=== PATIENT | male | born 1940 | race Caucasian/White ===

== ENCOUNTER → 2017-04-08 | Outpatient (CLI) | payer MEDICARE ==
--- NOTE | 2017-04-08 08:56 | MR ---
MRI BRAIN AND CERVICAL SPINE WITHOUT INTRAVENOUS CONTRAST: CLINICAL HISTORY: Myelopathy and stroke symptoms. TECHNIQUE: Multiplanar, multisequence imaging of the cervical spine is performed without intravenous contrast. COMPARISON: None. FINDINGS: Brain: Diffusion weighted images demonstrate no evidence of a recent infarct or other diffusion abnor mality. There is no extra-axial fluid collection. Old lacunar injury is seen of the right rosa that does not restricted diffusion and is T2/FLAIR hyperintense. Other scattered areas of T2/FLAIR hyperin tensity are seen within the subcortical and periventricular white matter, mild in degree and proporti omid to the patient's age. Major intracranial flow voids are maintained. The ventricular system and cisternal spaces are symmetrically prominent and compatible with age-related atrophy. Midline structures demonstrate normal morphology. The craniocervical junction appears within normal limits. Post contrast images demonstrate no abnormal enhancement. The dural venous sinuses appear pa tent. The globes are intact. Within the subcutaneous soft tissues of the left posterior occipital reg ion there is a 1.2 cm T2/flair/T1 hypointense subcutaneous oval well-circumscribed lesion without deena rounding inflammatory change that could represent a complex sebaceous cyst. Moderate ethmoid and mild frontal paranasal sinus mucosal thickening is appreciated. Remaining paranasal sinuses are well aera ernesto. Mild right nasal turbinate mucosal hypertrophy is present. Cervical spine: Sagittal images of the cervical spine show the craniocervical junction to appear within normal limits . The cervical and upper thoracic spinal cord is normal in course, caliber, and signal. Vertebral a lignment is anatomic. Multilevel degenerative disc disease is seen most pronounced at C6-C7 resulting in intervertebral disc space loss throughout the cervical spine. The bone marrow signal intensity i s within normal limits. T2 hyperintense 8mm right thyroid nodule is present as well as subcentimeter left thyroid gland nodularity. C2-C3: No significant disc disease, spinal canal stenosis or neuroforaminal narrowing. C3-C4: Mild disc desiccation, uncovertebral hypertrophy, and facet arthropathy are seen resulting in mild right neural foraminal narrowing. Left neural foramen and spinal canal remain patent. C4-C5: Broad-based disc bulge/disc osteophyte complex, uncovertebral hypertrophy and facet arthropath y are seen resulting in moderate right and mild left neural foraminal narrowing. No spinal canal sten osis. C5-C6: Broad-based disc bulge/disc osteophyte complex, facet arthropathy and uncovertebral hypertroph y are seen resulting in moderate right and mild left neural foraminal narrowing. No spinal canal sten osis. C6-C7: Central disc herniation effaces the ventral subarachnoid space creating mild spinal canal sten osis. Additionally uncovertebral hypertrophy and facet arthropathy contribute to moderate to severe l eft neural foraminal narrowing and mild right neural foraminal narrowing. No abnormal spinal cord sig nal is seen. C7-T1: No significant disc disease, spinal canal stenosis or neuroforaminal narrowing. IMPRESSION: 1. Central disc herniation at C6-C7 creating mild spinal canal stenosis and moderate to severe left n eural foraminal narrowing. Mild neuroforaminal narrowing on the right is also seen at this level. 2. Multilevel degenerative disc disease of the cervical spine resulting in variable degrees of neural foraminal narrowing as described above. 3. No evidence of acute infarct, mass effect or midline shift. 4. Old lacunar injury of the rosa and mild burden nonspecific white matter changes, likely on the bas is of chronic microangiopathy. 5. Possible complex 1.2 cm sebaceous cyst within the left occipital scalp. 6. 8 mm right thyroid nodule for which further characterization with thyroid ultrasound could be perf ormed.
== END | disposition home or self-care (01) ==
LOC: RADMRIMAIN 05:56
PROVIDERS: ATTEND Psychiatry & Neurology Neurology
DX: M48.02 Spinal stenosis, cervical region (principal); M50.221 Other cervical disc displacement at C4-C5 level; M99.71 Connective tissue and disc stenosis of intervertebral foramina of cervical region; M50.30 Other cervical disc degeneration, unspecified cervical region; R90.82 White matter disease, unspecified; E07.9 Disorder of thyroid, unspecified; Z87.81 Personal history of (healed) traumatic fracture
CPT/HCPCS: 70551; 72141

== ENCOUNTER 2022-09-27 19:44 | Emergency (ER) | payer MEDICARE ==
[2022-09-27 19:51] VITALS: TEMP 98.6
[2022-09-27] MEDS ORDERED: HYDROmorphone 0.5 MG/0.5 ML SYRINGE IM STA (20:15)
[2022-09-27] MEDS ORDERED: CARBIDOPA-LEVODOPA 25-100 MG 1 EACH TAB PO STA ×2 (20:16→22:20)
--- NOTE | 2022-09-27 21:29 | XR ---
EXAMINATION TYPE: XR femur RT, XR Hip RT and AP Pelvis DATE OF EXAM: 09/27/2022 9:11 PM INDICATION: Patient age:Male; 82 years old; Reason for study: fall; COMPARISON: None TECHNIQUE: The right femur was examined in Frontal and lateral projections. The right hip was evaluated in frontal and lateral views with frontal view of the pelvis. FINDINGS: Degeneration changes of the right knee with osteophyte formation of patella and tibial plateau. There is joint space narrowing along the medial aspect of the knee. Osteophyte formation of the superior a cetabulum of both hips. There is lucency through hi inferior pubic ramus on the right. Atherosclerosis of the arterial vasculature. Multilevel degeneration of the spine. IMPRESSION: 1. Linear lucency through the inferior pubic ramus on the right suspicious for fracture. Incidental further evaluation with CT. No definitive other fractures identified. 2. Bilateral hip osteoarthrosis. 3. Right knee osteoarthrosis.
--- NOTE | 2022-09-27 23:58 | ED ---
Fall HPI - General Chief Complaint: Fall Stated Complaint: FALL Time Seen by Provider: 09/27/22 20:02 Source: patient Mode of arrival: EMS - History of Present Illness Initial Comments: Patient is an 82-year-old male who presents to the emergency department for follow-up. Patient has Parkinson's he tripped on a step today at his family's home and fell. He did not hit his head or lose consciousness. He does not take blood thinners. Patient has pain in the inside and back of his right thigh. The pain is minimal until at rest however with movement patient has significant pain. - Related Data Home Medications Medication Instructions Recorded Confirmed Aspirin 162 mg PO DAILY 12/21/14 02/04/16 Cetirizine HCl [Zyrtec] 10 mg PO DAILY PRN 12/21/14 02/04/16 Colchicine [Colcrys] 0.6 mg PO BID PRN 12/21/14 02/04/16 HYDROcodone/APAP 5-325MG [[place] 5] 1 tab PO Q6HR PRN 12/21/14 02/04/16 Omeprazole [PriLOSEC] 20 mg PO Q48H 12/21/14 02/04/16 amLODIPine [Norvasc] 5 mg PO HS 12/21/14 02/04/16 lisinopriL [Prinivil] 20 mg PO BID 12/21/14 02/04/16 ALPRAZolam [Xanax] 0.25 - 0.5 mg PO HS 02/04/16 02/04/16 Carbidopa-Levodopa 25-100 mg 1 tab PO BID 02/04/16 02/04/16 [Sinemet 25-100] Cholecalciferol [Vitamin D3] 2,000 unit PO DAILY 02/04/16 02/04/16 Indomethacin [Indocin] 25 mg PO BID PRN 02/04/16 02/04/16 Multivitamins, Thera [Multivitamin] 1 tab PO DAILY 02/04/16 02/04/16 Ubidecarenone [Co Q-10] 200 mg PO DAILY 02/04/16 02/04/16 Vitamin B Complex 1 cap PO DAILY 02/04/16 02/04/16 flaxseed oiL [Hubbell-3 Flaxseed Oil] 1,000 mg PO DAILY 02/04/16 02/04/16 Previous Rx's Medication Instructions Recorded Loratadine [Claritin] 10 mg PO DAILY PRN #0 tab 02/05/16 Nitroglycerin Sl Tabs [Nitrostat] 0.4 mg SUBLINGUAL Q5M PRN #0 tab 02/05/16 atenoloL [Tenormin] 25 mg PO BID #30 tab 02/05/16 Allergies Allergy/AdvReac Type Severity Reaction Status Date / Time Sulfa (Sulfonamide Allergy Unknown,YEARS Verified 02/04/16 20:22 Antibiotics) AGO ibuprofen [From Motrin] AdvReac Nausea & Verified 02/04/16 20:22 Vomiting Review of Systems ROS Statement: Those systems with pertinent positive or pertinent negative responses have been documented in the HPI. ROS Other: All systems not noted in ROS Statement are negative. Past Medical History Past Medical History: Coronary Artery Disease (CAD), Fibromyalgia, Hyperlipidemi a, Hypertension, Myocardial Infarction (CO), Osteoarthritis (OA) Last Myocardial Infarction Date:: 2011 History of Any Multi-Drug Resistant Organisms: None Reported Past Surgical History: Heart Catheterization With Stent, Orthopedic Surgery Additional Past Surgical History / Comment(s): LEFT FOOT AND ANKLE X2. Right head surg for basal cell carcinoma Past Anesthesia/Blood Transfusion Reactions: No Reported Reaction Date of Last Stent Placement:: 06/17/11 Past Psychological History: Anxiety Past Alcohol Use History: Occasional Past Drug Use History: None Reported - Past Family History Father Family Medical History: Cancer Additional Family Medical History / Comment(s): Prostate CA General Exam Limitations: no limitations General appearance: alert, in no apparent distress Head exam: Present: atraumatic, normocephalic, normal inspection Eye exam: Present: normal appearance, PERRL, EOMI. Absent: scleral icterus, conjunctival injection, periorbital swelling Respiratory exam: Present: normal lung sounds bilaterally. Absent: respiratory distress, wheezes, rales, rhonchi, stridor Cardiovascular Exam: Present: regular rate, normal rhythm, normal heart sounds. Absent: systolic murmur, diastolic murmur, rubs, gallop, clicks Right Hip exam: Present: normal inspection, full ROM (pain with hip abduction ). Absent: tenderness, swelling, abrasion, laceration, ecchymosis, deformity, crepitus, dislocation, erythema, external rotation, internal rotation, shortening Upper Leg exam: Present: normal inspection, full ROM. Absent: tenderness, swelling, abrasion, laceration, ecchymosis, deformity, crepitus, dislocation, erythema Knee exam: Present: normal inspection, full ROM. Absent: tenderness, swelling Lower Leg exam: Present: normal inspection, full ROM. Absent: tenderness, swelling Ankle exam: Present: normal inspection. Absent: full ROM, tenderness Foot/Toe exam: Present: normal inspection. Absent: full ROM, tenderness Neurovascular tendon exam: Present: no vascular compromise Gait: not tested/not observed (due to pain) Neurological exam: Present: alert, oriented X3, CN II-XII intact Psychiatric exam: Present: normal affect, normal mood Course Vital Signs 09/27/22 09/27/22 09/27/22 19:47 19:54 20:00 Temperature 98.6 F Pulse Rate 86 80 83 Respiratory 18 Rate Blood Pressure 163/80 163/80 151/68 O2 Sat by Pulse 95 98 97 Oximetry 09/27/22 09/27/22 09/27/22 20:10 20:20 20:30 Temperature Pulse Rate 87 86 89 Respiratory Rate Blood Pressure 151/68 151/68 151/68 O2 Sat by Pulse 94 L 94 L Oximetry 09/27/22 09/27/22 09/27/22 20:40 20:50 21:00 Temperature Pulse Rate 90 90 Respiratory Rate Blood Pressure 151/83 151/83 151/83 O2 Sat by Pulse Oximetry 09/27/22 09/27/22 09/27/22 21:10 21:20 21:30 Temperature Pulse Rate 96 96 89 Respiratory Rate Blood Pressure O2 Sat by Pulse 93 L 95 95 Oximetry 09/27/22 09/27/22 09/27/22 21:40 21:50 22:00 Temperature Pulse Rate 91 91 90 Respiratory 20 Rate Blood Pressure 128/64 128/64 128/64 O2 Sat by Pulse 94 L 94 L 94 L Oximetry 09/27/22 09/27/22 09/27/22 22:10 22:20 22:30 Temperature Pulse Rate Respiratory 20 Rate Blood Pressure 132/53 118/57 118/57 O2 Sat by Pulse 93 L 94 L Oximetry Medical Decision Making - Medical Decision Making Was pt. sent in by a medical professional or institution (, PA, [facility], urgent care, hospital, or usp...) When possible be specific @ -No Did you speak to anyone other than the patient for history (EMS, parent, family, police, friend...)? What history was obtained from this source @ -No Did you review nursing and triage notes (agree or disagree)? Why? @ -I reviewed and agree with nursing and triage notes Were old charts reviewed (outside hosp., previous admission, EMS record, old EKG, old radiological studies, urgent care reports/EKG's, usp records)? Report findings @ -No old charts were reviewed Differential Diagnosis (chest pain, altered mental status, abdominal pain women, abdominal pain men, vaginal bleeding, weakness, fever, dyspnea, syncope, headache, dizziness, GI bleed, back pain, seizure, CVA, palpatations, mental health)? @ - hip fracture, hip dislocation, contusion, soft tissue injury. This list is not meant to be all-inclusive EKG interpreted by me (3pts min.). @ -As above X-rays interpreted by me (1pt min.). @ -Yes, X-ray obtained which was a linear lucency through the inferior pubic ramus on the right suspicious for fracture CT interpreted by me (1pt min.). @ -Yes, T-shaped comminuted right acetabular roof fracture with involvement of the anterior and posterior owens. There is nondisplaced right ischial tuberosity fracture U/S interpreted by me (1pt. min.). @ -None done What testing was considered but not performed or refused? (CT, X-rays, U/S, labs)? Why? @ -None What meds were considered but not given or refused? Why? @ -None Did you discuss the management of the patient with other professionals (professionals i.e. , PA, [facility] [facility], lab, RT, psych nurse, social insurance specialist, english as a second language instructor, teacher, unclaimed property officer, casework specialist)? Give summary @ -Yes, Dr. Clancy. See hospital course. Was smoking cessation discussed for >3mins.? @ -No Was critical care preformed (if so, how long)? @ -No Were there social determinants of health that impacted care today? How? (Homelessness, low income, unemployed, alcoholism, drug addiction, transportation, low edu. Level, literacy, decrease access to med. care, senior care, rehab)? @ -No Was there de-escalation of care discussed even if they declined (Discuss DNR or withdrawal of care, Hospice)? DNR status @ -No What co-morbidities impacted this encounter? (DM, HTN, Smoking, COPD, CAD, Cancer, CVA, ARF, Chemo, Hep., AIDS, mental health diagnosis, sleep apnea, morbid obesity)? @ -None Was patient admitted / discharged? Hospital course, mention meds given and route, prescriptions, significant lab abnormalities, going to OR and other pertinent info. @ -Patient presenting with right lower extremity after fall. DP 2+. Sensation intact. Patient does have full range of motion however hip abduction causes significant pain to his inner thigh. Patient unable to ambulate due to pain. X-ray obtained which was a linear lucency through the inferior pubic ramus on the right suspicious for fracture. CT recommended which was obtained showing T- shaped comminuted right acetabular roof fracture with involvement of the anterior and posterior owens. There is nondisplaced right ischial tuberosity fracture Patient cannot ambulate I discussed admission with Dr. Clancy who declines states fracture is too complex for their orthopedic team. Case discussed with affiliate marketing specialist Dr. Peñaloza and ED attending Dr. Cook at [facility] who accepts transfer. Patient transferred in stable condition. Undiagnosed new problem with uncertain prognosis? @ -No Drug Therapy requiring intensive monitoring for toxicity (Heparin, Nitro, Insulin, Cardizem)? @ -No Were any procedures done? @ -No Diagnosis/symptom? @ -fall Acute, or Chronic, or Acute on Chronic? @ - acetabular fracture, ischial tuberosity fracture Uncomplicated (without systemic symptoms) or Complicated (systemic symptoms)? @ -uncomplicated Side effects of treatment? @ -No Exacerbation, Progression, or Severe Exacerbation? @ -No Poses a threat to life or bodily function? How? (Chest pain, USA, CO, pneumonia, PE, COPD, DKA, ARF, appy, cholecystitis, CVA, Diverticulitis, Homicidal, Suicidal, threat to staff... and all critical care pts) @ -No Dr. Milner is my attending. Disposition Clinical Impression: Fall, Fracture of ischial tuberosity, Acetabular fracture Disposition: OTHER INSTITUTION NOT DEFINED Condition: Good Referrals: Timbo Dominique MD [Primary Care Provider] - 1-2 days - Out of Hospital Transfer - Req. Specs Out of Hospital Transfer - Requested Specifics: Other Non-Acute (Haris Noble)
--- NOTE | 2022-09-28 00:05 | CT ---
EXAM: CT Pelvis Without Intravenous Contrast CLINICAL HISTORY: ITS.REASON CT Reason: fall TECHNIQUE: Axial computed tomography images of the pelvis without intravenous contrast. CTDI is 10.7 mGy and DLP is 445.4 mGy-cm. This CT exam was performed using one or more of the following dose reduction techniques: automated exposure control, adjustment of the mA and/or kV according to patient size, and/or use of iterative reconstruction technique. COMPARISON: No relevant prior studies available. FINDINGS: Bowel: Moderate sigmoid diverticulosis without evidence of diverticulitis.. No obstruction. No mucosal thickening. Appendix: No findings to suggest acute appendicitis. Intraperitoneal space: Unremarkable. No free air. No significant fluid collection. Bladder: Unremarkable. No stones. Reproductive: Unremarkable as visualized. Bones/joints: T-shaped comminuted right acetabular roof fracture with involvement of the anterior and posterior owens. Nondisplaced right ischial tuberosity fracture. No dislocation. Soft tissues: Small periumbilical hernia. Vasculature: Unremarkable. No lower abdominal aortic aneurysm. Lymph nodes: Unremarkable. No enlarged lymph nodes. IMPRESSION: 1. T-shaped comminuted right acetabular roof fracture with involvement of the anterior and posterior owens. 2. Nondisplaced right ischial tuberosity fracture.
[2022-09-28 01:39] VITALS: BP 127/72; PULSE 89; RESP 18
[2022-09-28] MEDS ORDERED: HYDROmorphone 0.5 MG/0.5 ML SYRINGE IVP STA (02:11)
== END 2022-09-28 02:18 | disposition other institution (70) ==
LOC: SUPCPDRO 19:44 → EC 19:44
DX: S32.601A Unspecified fracture of right ischium, initial encounter for closed fracture (principal); S32.441A Displaced fracture of posterior column [ilioischial] of right acetabulum, initial encounter for closed fracture; I25.10 Atherosclerotic heart disease of native coronary artery without angina pectoris; I10 Essential (primary) hypertension; E78.5 Hyperlipidemia, unspecified; F41.9 Anxiety disorder, unspecified; Z88.8 Allergy status to other drugs, medicaments and biological substances; Z95.5 Presence of coronary angioplasty implant and graft; Z88.2 Allergy status to sulfonamides; Z79.82 Long term (current) use of aspirin; Z79.899 Other long term (current) drug therapy; W18.09XA Striking against other object with subsequent fall, initial encounter; Y92.009 Unspecified place in unspecified non-institutional (private) residence as the place of occurrence of the external cause
CPT/HCPCS: 73502; 73552; 72192; 99285; 96374; 96372; J1170